=== PATIENT | male | born 1995 | race Caucasian/White ===

== ENCOUNTER 2020-05-15 17:05 | Emergency (ER) | payer OTHER, SELFPAY ==
--- NOTE | ~2020-05-15 | XR_ITS ---
EXAMINATION: XR chest 2V DATE: 05/15/2020 18:44 INDICATION: Shortness of breath. TECHNIQUE: Frontal and lateral views of the chest were obtained. COMPARISON: None. FINDINGS: The chest demonstrates clear lungs without pneumonia, pleural effusion, or pneumothorax. Th e heart size is normal. IMPRESSION: 1. No acute cardiopulmonary disease. Reviewed, dictated and finalized at location A.
--- NOTE | ~2020-05-15 | CT_ITS ---
EXAMINATION: Anisa Villalobos MD DATE: 05/15/2020 21:47 INDICATION: Chest pain. Shortness of breath. Upper abdominal tenderness. TECHNIQUE: Computed tomographic angiography (CTA) of the chest, abdomen, and pelvis was performed wit h 100 mL Omnipaque-350 intravenous contrast. Automated exposure control and iterative reconstruction technique were employed. The dose-length product was 1982.00 mGy-cm. Maximum intensity projection 3D- reconstructions of the aorta and other arteries were constructed by the technologist on a separate wo rkstation. COMPARISON: None. FINDINGS: CHEST CTA: The lungs demonstrate minimal atelectasis on the left. No pleural effusion. The heart size is normal. No pericardial effusion. There is no pulmonary embolus. Thoracic aorta is normal in caliber. No diss ection. There is bilateral gynecomastia. There is mild thoracic spondylosis. ABDOMEN AND PELVIS CTA: There is diffuse hepatic steatosis. The gallbladder, spleen, pancreas, adrenal glands, and kidneys ar e normal. There are no dilated loops of bowel. The appendix is normal. Abdominal aorta is normal. The re are no pathologically enlarged lymph nodes. There is no free intraperitoneal fluid. There is mild lumbar spondylosis. IMPRESSION: 1. Diffuse hepatic steatosis. Reviewed, dictated and finalized at location A.
--- NOTE | 2020-05-15 17:07 | ECG_ITS ---
Measurements Intervals [place] Rate: 114 P: 22 MT: 147 QRS: 10 QRSD: 98 T: 35 QT: 316 QTc: 436 Interpretive Statements SINUS TACHYCARDIA DELAYED PRECORDIAL R/S TRANSITION NONSPECIFIC T-WAVE ABNORMALITY- INF/LAT LEADS BASELINE ARTIFACT- I, III, AVR, AVL, AVF ABNORMAL ECG Electronically Signed On 05-15-2020 20:19:46 CDT by Corona Short D.O.
[2020-05-15 17:21] VITALS: BP 162/99; PULSE 121; RESP 19; TEMP 37.7; O2SAT 100
[2020-05-15 17:27] LABS: Basophils Absolute Auto 0.1 K/mm3 (0.0-0.1); Basophils Percent Auto 0.6 % (0.2-1.2); Eosinophils Absolute Auto 0.1 K/mm3 (0-0.3); Hematocrit 46.7 % (42.0-52.0); Hemoglobin 16.4 g/dL (14.0-18.0); Immature Granulocyte Absolute 0.02 K/mm3 (0.00-0.031); Immature Granulocyte Percent A 0.2 % (0-0.5); Lymphocytes Absolute Auto 2.96 K/mm3 (0.9-3.2); Lymphocytes Percent Auto 35.7 % (18.3-44.2); Mean Corpuscular HGB Conc 35.1 g/dl (32-36); Mean Corpuscular Hemoglobin 30.9 pg (26-34); Mean Corpuscular Volume 88.1 fl (80-100); Mean Platelet Volume 10.6 fl (7.4-10.4); Monocytes Absolute Auto 0.7 K/mm3 (0.1-0.6); Monocytes Percent Auto 8.1 % (2.6-8.5); Neutrophils Absolute Auto 4.5 K/mm3 (1.3-6.7); Neutrophils Percent Auto 54.4 % (45.5-73.1); Platelet Count Result 246 k/mm3 (150-375); Red Cell Distribution Width 12.6 % (11.5-14.5); White Blood Count 8.3 K/mm3 (4.5-10.0)
[2020-05-15 17:38] LABS: Blood Urea Nitrogen 12 mg/dL (9-20); Calcium 9.4 mg/dL (8.4-10.2); Carbon Dioxide 23 mmol/L (22-30); Chloride 107 mmol/L (98-107); Estimated CRCL calculation 110 ml/min; Estimated Glomerular Filt Rate > 60; Glucose 112 mg/dL (75-110); Potassium 4.1 mmol/L (3.4-5.0); Sodium 140 mmol/L (137-145)
[2020-05-15 20:14] VITALS: BP 168/99; PULSE 102; RESP 19; O2SAT 98
[2020-05-15 20:45] VITALS: BP 137/85; PULSE 102; RESP 12; O2SAT 97
[2020-05-15 20:54] LABS: Prothrombin Time 12.6 Seconds (11.1-14.7)
[2020-05-15 20:55] LABS: Partial Thromboplastin Time 28.3 SECONDS (22.3-36.8)
--- NOTE | 2020-05-15 21:06 | ED.SOB ---
HPI - SOB/Dyspnea General Chief Complaint: Shortness of Breath/Dyspnea Stated Complaint: SOB Time Seen by Provider: 05/15/20 20:30 Source: patient Mode of arrival: ambulatory Limitations: no limitations History of Present Illness HPI Narrative: This patient is a 24 year old male who presents for evaluation of fatigue and chest pain. He states starting 4 days ago he developed body aches and fatigue. Two days ago he developed substernal constant chest pressure. He states this pressure may be worse with he moves around but otherwise it is constant. He also reports shortness of breath when he talks for a long time. He denies cough, fever, nausea, vomiting or abdominal pain. He denies any significant family history. MD elicited complaint: shortness of breath and chest pain Related Data Home Medications Medication Instructions Recorded Confirmed amitriptyline 05/15/20 Allergies Allergy/AdvReac Type Severity Reaction Status Date / Time No Known Allergies Allergy Verified 05/15/20 20:44 Review of Systems Review of Systems: All systems reviewed & are unremarkable except as noted in HPI and below Constitutional: Constitutional: Denies chills, Reports fatigue and Denies fever(s) ENT: Denies dizziness and Denies sore throat Cardiovascular: Cardiovascular: Reports chest pain, Denies rapid heart rate and Denies radiating jaw, neck or arm pain Respiratory: Respiratory: Denies chest congestion, Denies cough, Reports dyspnea and Denies wheezing Gastrointestinal: Gastrointestinal: Denies abdominal pain, Denies diarrhea, Denies nausea and Denies vomiting Musculoskeletal: Musculoskeletal: Reports myalgias Neurologic: Denies dizziness and Denies headache(s) [facility] Past Medical History Medical History (Updated 05/16/20 @ 00:00 by [facility]) Patient denies medical problems Surgical History Surgical History (Updated 05/15/20 @ 21:07 by Anisa Villalobos MD) No significant past surgical history Social History Social History (Updated 05/15/20 @ 21:07 by Anisa Villalobos MD) Smoking status: Never smoker Alcohol intake: current Alcohol use details: social drinker Substance use: never Gender identity (if verbalized by the patient): Male Exam Narrative: Exam Narrative: GENERAL: Well-appearing, well-nourished, and in no acute distress. obese HEAD: Normocephalic, atraumatic EYES: PERRLA and EOMI, conjunctiva clear without discharge THROAT:Mucous membranes moist, Oropharynx normal without erythema, exudate, peritonsillar swelling or fluctuance NECK: Supple, without lymphadenopathy or mass RESPIRATORY: No respiratory distress, Airway patent, Respirations non-labored, Clear to auscultation without rales, rhonchi or wheeze HEART: Regular rate and rhythm. No murmur heard. Normal peripheral pulses. ABDOMEN: Soft, epigastric RUQ tenderness, nondistended, normal active bowel sounds. No masses. No rebound or guarding, No organomegaly. EXTREMITIES: No edema, normal strength with full range of motion. SKIN: Warm, dry, normal color without rash NEURO: Alert and oriented x3. CN 2-12 grossly intact. No focal deficits. PSYCH: Normal mood and affect. Course Reevaluation(s) Reevaluation #1: I have discussed with patient evaluation unremarkable other than fatty liver. He will be tested for COVID given fatigue , body aches and sob. He is no distress. No hypoxia Date: 05/15/20 Time: 22:55 Vital Signs Vital signs: Vital Signs Temperature 99.8 F H 05/15/20 17:21 Pulse Rate 121 H 05/15/20 17:21 Respiratory Rate 19 05/15/20 17:21 Blood Pressure 162/99 H 05/15/20 17:21 Pulse Oximetry 100 05/15/20 17:21 Temperature 98.0 F 05/15/20 23:16 Pulse Rate 80 05/15/20 23:16 Respiratory Rate 20 05/15/20 23:16 Blood Pressure 127/80 05/15/20 23:16 Pulse Oximetry 99 05/15/20 23:16 MDM - SOB/Dyspnea Lab Data Attestation: I reviewed the patient's lab results. Result di
[2020-05-15 21:41] LABS: Alanine Aminotransferase 131 U/L (4-50); Albumin Level 4.8 g/dL (3.5-5.1); Alkaline Phosphatase 76 U/L (38-126); Aspartate Amino Transferase 70 U/L (17-59); Bilirubin,Total 0.5 mg/dL (0.2-1.3); Lipase 63 U/L (23-300)
[2020-05-15 22:48] LABS: Troponin I < 0.012 ng/mL (0.000-0.034)
[2020-05-15 23:16] VITALS: BP 127/80; PULSE 80; RESP 20; TEMP 36.7; O2SAT 99
[2020-05-16 14:52] LABS: SARS-CoV-2 RNA PCR Negative
== END 2020-05-15 23:17 | disposition home or self-care (01) ==
PROVIDERS: Emergency Medicine; Emergency Provider General Practice; PCP Student in an Organized Health Care Education/Training Program
DX: R07.89 Other chest pain (principal); Z20.828 Contact with and (suspected) exposure to other viral communicable diseases
CPT/HCPCS: 36415; 71046; 71275; 74174; 80048; 80076; 83690; 84484; 85025; 85610; 85730; 87635; 93005; 96365; 99284; C9803; J0131; Q9967; U0003